=== PATIENT | male | born 1950 | race Caucasian/White ===

== ENCOUNTER 2016-11-30 07:22 | Emergency (ER) | payer MEDICARE ==
[2016-11-30 07:34] VITALS: BP 168/104
[2016-11-30] MEDS ORDERED: Fluorescein Sodium TOPICAL* 1 MG TEST OPHTHALMIC ONE (07:58)
--- NOTE | 2016-11-30 08:05 | UC ---
Eye Complaint HPI - HPI Summary HPI Summary: 65 yo male with right eye redness/itching and mild lid discomfort x 2 days wakes up with lids matted shut now left eye is beginning to bother him no photophobia - History of Current Complaint Chief Complaint: UCEye Stated Complaint: EYE ISSUE Time Seen by Provider: 11/30/16 07:53 Hx Obtained From: Patient Onset/Duration: Gradual Onset Timing: Constant Severity Initially: Mild Severity Currently: Mild Pain Intensity: 2 Pain Scale Used: 0-10 Numeric Location of Injury: Conjunctiva Character: Dull Aggravating Factor(s): Nothing Associated Signs And Symptoms: Positive: Drainage (Purulent) - Risk Factors Penetrating Injury Risk Factor: Negative Globe Rupture Risk Factors: Negative Acute Glaucoma Risk Factors: Negative Optic Artery Occlusion Risk Factors: Negative - Allergies/Home Medications Allergies/Adverse Reactions: Allergies Allergy/AdvReac Type Severity Reaction Status Date / Time Morphine AdvReac Severe Vomiting Verified 11/30/16 07:34 Home Medications: Home Medications Ibuprofen [Ibuprofen 200 MG] 200 mg PO PRN 11/30/16 [History] PMH/Surg Hx/FS Hx/Imm Hx Previously Healthy: Yes Cardiovascular History Of: Reports: Hypertension - noted at recent ortho visit Denies: Pacemaker/ICD - Surgical History Surgical History: Yes Surgery Procedure, Year, and Place: LEFT Hip revision. 1990. T+A 1956. right thumb 2013 - Family History Known Family History: Positive: Hypertension - Social History Alcohol Use: Daily Alcohol Amount: 10 OZ/WEEK Substance Use Type: None Smoking Status (MU): Never Smoked Tobacco Review of Systems Constitutional: Negative Skin: Negative Eyes: Drainage, Eye Redness ENT: Negative Respiratory: Negative Cardiovascular: Negative Gastrointestinal: Negative Genitourinary: Negative Motor: Negative Neurovascular: Negative Musculoskeletal: Negative Neurological: Negative Psychological: Negative All Other Systems Reviewed And Are Negative: Yes Physical Exam Triage Information Reviewed: Yes Appearance: Well-Appearing, No Pain Distress, Well-Nourished Vital Signs: Initial Vital Signs Temp 97.5 F 11/30/16 07:27 Pulse 98 11/30/16 07:27 Resp 16 11/30/16 07:27 BP 168/104 11/30/16 07:27 Pulse Ox 99 11/30/16 07:27 Eyes: Positive: Conjunctiva Inflamed - R>L, Discharge - R, Other: - no sty/no fb noted/flourescein (-) ENT: Negative: Hearing grossly normal - bilateral VILLA, Nasal congestion, Nasal drainage, Trismus, Muffled/hoarse voice Neck: Positive: Supple, Nontender Respiratory: Positive: Lungs clear, Normal breath sounds, No respiratory distress Cardiovascular: Positive: RRR, No Murmur Musculoskeletal: Positive: ROM Intact, No Edema Neurological: Positive: Alert Psychological Exam: Normal Skin Exam: Normal Eye Complaint Course/Dx - Differential Dx/Diagnosis Provider Diagnoses: conjunctivitis. elevate BP Discharge - Discharge Plan Condition: Stable Disposition: HOME Prescriptions: Polymyx/Trimethoprim OPTH* [Polytrim OPHTH*] 1 - 2 drop BOTH EYES QID #1 btl Patient Education Materials: Conjunctivitis (ED) Referrals: Pavel Leroy MD [Primary Care Provider] - As Soon As Possible (your BP here was 168/104) Additional Instructions: I suggest you also use ZADITOR eye drops (over the counter) as discussed see your MD about your BP See Dr. Maldonado in a couple of days if the eyes are not improved
== END 2016-11-30 08:20 | disposition home or self-care (01) ==
LOC: UCEAST 07:22
DX: H10.9 Unspecified conjunctivitis (principal); R03.0 Elevated blood-pressure reading, without diagnosis of hypertension
CPT/HCPCS: 99212; A9270-GY; G0463

== ENCOUNTER 2017-01-26 20:16 | Emergency (ER) | payer MEDICARE ==
[2017-01-26 20:29] VITALS: BP 142/89
[2017-01-26] MEDS ORDERED: HYDROcodone/ACETAMIN 5-325 MG* 1 TAB PO ONE ×2 (21:27)
--- NOTE | 2017-01-26 22:05 | UC ---
Jacquie Samano Edward, scribed for Rian Wesley MD on 01/26/17 at 2115 . Neck Pain HPI - HPI Summary HPI Summary: 66 y/o male presents to [facility] c/o neck pain starting three days ago. Patient felt stiffness in neck and arm three nights ago. Two nights ago, the patient's neck pain became severe. It is rated at a 10/10 @ triage. The pain is located in the L side of the neck and radiates to his L shoulder and down his back. The pain is aggravated when he moves his arms. The neck pain is not alleviated by Ibuprofen or ice treatment. Patient has difficulty turning over or sitting up when lying down. Patient states he reached over to pick something up four days ago - he believes his neck pain may be attributed to this motion. Associated sx : decreased ROM secondary to pain in neck. Denies any other specific injury. PMHx HTN, chronic pain, arthritis. SHx L hip replacement, impending R hip replacement. - History of Current Complaint Chief Complaint: UCBackPain Stated Complaint: NECK PAIN Time Seen by Provider: 01/26/17 21:06 Hx Obtained From: Patient Mechanism Of Injury: No Known Trauma Onset/Duration: Gradual Onset, Lasting Days, Still Present Location: Discrete At: - L side of neck, Radiates To: - L shoulder and back Alleviating Factors: Nothing - Not alleviated by ice or ibuprofen Associated Signs & Symptoms: Positive: Nuchal Rigity - Allergies/Home Medications Allergies/Adverse Reactions: Allergies Allergy/AdvReac Type Severity Reaction Status Date / Time Morphine AdvReac Severe Vomiting Verified 01/26/17 20:29 Home Medications: Home Medications traMADol TAB* [Ultram*] 01/26/17 [History] PMH/Surg Hx/FS Hx/Imm Hx - Additional Past Medical History Additional PMH: Positive: arthritis Previously Healthy: No Cardiovascular History: Hypertension - Surgical History Surgical History: Yes Surgery Procedure, Year, and Place: LEFT Hip revision. 1990. T+A 1956. right thumb 2013 - Family History Known Family History: Positive: Hypertension - Social History Alcohol Use: Occasionally Alcohol Amount: 10 OZ/WEEK Substance Use Type: None Smoking Status (MU): Never Smoked Tobacco Review Of Systems Constitutional: Positive: Negative Skin: Positive: Negative Eyes: Positive: Negative ENT: Positive: Negative Respiratory: Positive: Negative Cardiovascular: Positive: Negative Gastrointestinal: Positive: Negative Genitourinary: Positive: Negative Musculoskeletal: Positive: Arthralgia - Chronic pain, Decreased ROM - Neck secondary to pain, Myalgia - L neck pain Neurological: Positive: Negative Psychological: Positive: Negative All Other Systems Reviewed And Are Negative: Yes Physical Exam Triage Information Reviewed: Yes Appearance: Well-Appearing, Pain Distress - Mild to moderate pain distress with movement of neck Vital Signs: Initial Vital Signs Temp 97.3 F 01/26/17 20:23 Pulse 72 01/26/17 20:23 Resp 12 01/26/17 20:23 BP 142/89 01/26/17 20:23 Pulse Ox 99 01/26/17 20:23 Vital Signs Reviewed: Yes Eyes: Positive: Conjunctiva Clear ENT: Positive: Normal ENT inspection Neck: Positive: Supple, Nontender Respiratory: Positive: Lungs clear, Normal breath sounds, No respiratory distress Cardiovascular: Positive: RRR, Pulses Normal Abdomen Description: Positive: Nontender, Soft Bowel Sounds: Positive: Present Musculoskeletal: Positive: Strength Intact - No strength or sensation deficit, ROM Intact - Good ROM in arms, Other: - There is pain anytime he tries to look left or right. No midline tenderness @ C-spine, tender laterally. Neurological Exam: Normal Neurological: Positive: Alert Psychological Exam: Normal Psychological: Positive: Age Appropriate Behavior Skin Exam: Normal Neck Pain Course/Dx - Course Course Of Treatment: MEDICATIONS REVIEWED ON VISIT. NON TRAUMATIC INJURY. NO NEUROLOGIC DEFICIT. CT NOT AVAILABLE IN CLINIC TONIGHT SO, NO IMAGING DONE. PATIENT WILL F/U WITH PMD TO DETERMINE IMAGING/FURTHER CARE. RETURN IF WORSE. - Differential Dx/Diagnosis Provider Diagnoses: NECK PAIN WITH RADICULOPATHY. Discharge - Discharge Plan Condition: Stable Disposition: HOME Prescriptions: Cyclobenzaprine TAB* [Flexeril 10 MG TAB*] 10 mg PO TID PRN #15 tab PRN Reason: Pain HYDROcodone/ACETAMIN 5-325 MG* [[place] 5-325 TAB*] 1 tab PO Q4H PRN #20 tab MDD 6 PRN Reason: Pain Patient Education Materials: Cervical Strain (ED), Cervical Radiculopathy (ED) , Acute Neck Pain (ED) Referrals: Pavel Leroy MD [Primary Care Provider] - Additional Instructions: FOLLOW UP WITH YOUR DOCTOR. CONTINUE THE IBUPROFEN DIRECTED. STOP THE TRAMADOL AND TAKE THE NORCO (HYDROCODONE/ACETAMINOPHEN) DIRECTED NEEDED. TAKE THE MUSCLE RELAXER FLEXERIL DIRECTED NEEDED. CALL YOUR DOCTOR TOMORROW TO DETERMINE IF HE WISHES ANY IMAGING (X-RAY/CT/MRI). WE DID NOT PERFORM A CT TODAY BECAUSE OUR CT WAS NOT AVAILABLE. GET SEEN AGAIN FOR ANY WORSENING OF YOUR CONDITION; WEAKNESS, NUMBNESS, PAIN OR QUESTIONS OR CONCERNS. The documentation as recorded by the Jacquie moore Edward accurately reflects the service I personally performed and the decisions made by me, Rian Wesley MD.
== END 2017-01-26 21:54 | disposition home or self-care (01) ==
LOC: UCEAST 20:16
DX: M54.12 Radiculopathy, cervical region (principal)
CPT/HCPCS: 99212; G0463

== ENCOUNTER 2017-11-14 15:49 | Emergency (ER) | payer MEDICARE ==
[2017-11-14] MEDS ORDERED: methylPREDNISolone 125 MG* 2 ML VIAL IV ONE (16:13)
[2017-11-14] MEDS ORDERED: Famotidine IV* 10 MG/ML 2 ML (20 mg) IV SLOW PU ONE (16:13)
[2017-11-14] MEDS ORDERED: diPHENhydraMINE IV* 50 MG/ML 1 ml VIAL (BENADRYL) IV ONE (16:13)
--- NOTE | 2017-11-14 18:20 | ED ---
Desean Samano Stephanie, scribed for Kulwinder Cummings MD on 11/14/17 at 1623 . Allergic Reaction/Systemic - HPI Summary HPI Summary: The pt is a 66 y/o M presenting to the ED with c/o throat and tongue soreness s/ p eating at 13:45 today. Symptoms include rash, dizziness, lightheadedness and swollen lips. Pt states he ate salad of green beans, corn, and jicama. The pt reports onset of his symptoms began 20 minutes after his meal. The pt was given epi at [facility] today. - History of Current Complaint Chief Complaint: EDAllergicReaction Time Seen by Provider: 11/14/17 15:56 Hx Obtained From: Patient Onset/Duration: Sudden Onset, Started hours ago - 3, Still Present Timing: Constant Severity Currently: Mild Pain Intensity: 0 Pain Scale Used: 0-10 Numeric Location: Diffuse Aggravating Factor(s): Nothing Alleviating Factor(s): Nothing Associated Signs And Symptoms: Positive: Lightheadedness, Rash - Allergies/Home Medications Allergies/Adverse Reactions: Allergies Allergy/AdvReac Type Severity Reaction Status Date / Time morphine Allergy Vomiting Verified 11/14/17 16:34 Home Medications: Home Medications Omeprazole CAP* [Prilosec CAP* 20 MG] 40 mg PO DAILY 11/14/17 [History Confirmed 11/14/17] Simvastatin TAB(NF) [Zocor(NF)] 20 mg PO DAILY 11/14/17 [History Confirmed 11/14] PMH/Surg Hx/FS Hx/Imm Hx Cardiovascular History: Reports: Hx Hypertension - noted at recent ortho visit Denies: Hx Pacemaker/ICD Musculoskeletal History: Reports: Hx Arthritis - LEFT THUMB Denies: Hx Rheumatoid Arthritis, Hx Osteoporosis Sensory History: Reports: Hx Contacts or Glasses - GLASSES, Hx Hearing Aid - BILAT Opthamlomology History: Reports: Hx Contacts or Glasses - GLASSES Neurological History: Reports: Other Neuro Impairments/Disorders - 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 1990. T+A 1956. right thumb 2013 Hx Anesthesia Reactions: No Infectious Disease History: No Infectious Disease History: Denies: Traveled Outside the [place] in Last 30 Days - Family History Known Family History: Positive: Hypertension - Social History Occupation: Employed Full-time Lives: With Family Alcohol Use: Occasionally Alcohol Amount: 10 OZ/WEEK Substance Use Type: Reports: None Hx Tobacco Use: No Smoking Status (MU): Never Smoked Tobacco Have You Smoked in the Last Year: No Review of Systems Negative: Fever Positive: Sore Throat, Other - tongue soreness Positive: Rash, Other - swollen lips Neurological: Other - dizziness, lightheadedness All Other Systems Reviewed And Are Negative: Yes Physical Exam - Summary Physical Exam Summary: Appearance: Well appearing, no pain distress Skin: warm, dry, blotchy red rash over chest and arms Head/face: normal Eyes: EOMI, SAGE ENT: uvula is swollen, R lower lip swelling, no tongue swelling Neck: supple, non-tender Respiratory: CTA, breath sounds present Cardiovascular: RRR, pulses symmetrical Abdomen: non-tender, soft Bowel Sounds: present Musculoskeletal: normal, strength/ROM intact Neuro: normal, sensory motor intact, A&Ox3 Triage Information Reviewed: Yes Vital Signs On Initial Exam: Initial Vitals Temp Pulse Resp BP Pulse Ox 98.7 F 81 18 168/93 99 11/14/17 16:03 11/14/17 16:03 11/14/17 16:03 11/14/17 16:03 11/14/17 16:03 Vital Signs Reviewed: Yes Diagnostics - Vital Signs Vital Signs Temp Pulse Resp BP Pulse Ox 11/14/17 16:03 98.7 F 81 18 168/93 99 - Laboratory Lab Statement: Any lab studies that have been ordered have been reviewed, and results considered in the medical decision making process. Re-Evaluation - Re-Evaluation First Eval Change: Improved - Significantly improved with steroid, Pepcid and Benadryl. Allergic Reaction Course/Dx - Course Course Of Treatment: Patient with significant apparent food related allergy. Patient's or obtain ingredient list from [employer]. Had received prehospital epinephrine and Benadryl. He further improved with H1, H2 marina, steroid here. A second dose of epinephrine was not needed. He had residual mild edema of his uvula without any systemic signs or rash. His blood pressures remained normal. He was given prescriptions for EpiPen as well as steroid, H2 marina. He will follow up with primary care physician for allergy referral. - Diagnoses Provider Diagnoses: Acute anaphylaxis, Food allergy Discharge - Sign-Out/Discharge Documenting (check all that apply): Discharge/Admit/Transfer - Discharge Plan Condition: Improved Disposition: HOME Prescriptions: EPINEPHrine [Epipen 2-Lobito] 0.3 mg IM ONCE PRN #2 box PRN Reason: severe allergy symptoms Famotidine TAB* [Pepcid 20 MG TAB*] 20 mg PO BID PRN #10 tab PRN Reason: Allergy Symptoms predniSONE TAB* [Deltasone TAB*] 50 mg PO DAILY #3 tab Patient Education Materials: Anaphylaxis (ED) Referrals: Pavel Leroy MD [Primary Care Provider] - Additional Instructions: Call your doctor in the morning for recheck. Have him refer you for allergy testing. Always carry an EpiPen with you. Uses for severe symptoms. Return with difficulty breathing, lightheadedness, worse or other concerns as discussed. - Billing Disposition and Condition Condition: IMPROVED Disposition: HOME The documentation as recorded by the Desean moore Stephanie accurately reflects the service I personally performed and the decisions made by , Kulwinder Cummings MD.
[2017-11-14 19:14] VITALS: BP 162/95
== END 2017-11-14 18:35 | disposition home or self-care (01) ==
LOC: ED 15:49
DX: T78.09XA Anaphylactic reaction due to other food products, initial encounter (principal); R21 Rash and other nonspecific skin eruption; R42 Dizziness and giddiness; J02.9 Acute pharyngitis, unspecified
CPT/HCPCS: 96374; 99283; J1200; J2930

== ENCOUNTER 2019-03-20 15:45 | Emergency (ER) | payer MEDICARE ==
[2019-03-20 16:08] VITALS: BP 179/99
--- NOTE | 2019-03-20 16:31 | UC ---
Lower Extremity/Ankle HPI - HPI Summary HPI Summary: 68-year-old male comes in with a chief complaint of right leg pain. Pain started on March 08 when he jumped off his tractor and sudden onset of pain in the right anterior thigh. He saw his surgeon in [place] who did x-rays of the leg at the hip and the back and the patient reports no fractures were seen but he did find degenerative changes in the spine and the surgeon gave him the diagnosis of lumbar radiculopathy. The pain has been intermittent since March 08 this most recent exacerbation started yesterday morning when he got up from sleep in the morning. If the patient states bent forward he has no pain but as soon as he stands up straight he gets pain shooting in the right thigh. Patient has been taking acetaminophen and naproxen with minimal relief. No weakness or numbness no difficulty controlling urine or bowels. He has a appointment with physical therapy on Monday, March 25, 2019 and also on the same date an appointment with his primary care physician. Patient does have a history of surgery in the right hip. - History of Current Complaint Chief Complaint: UCBackPain Stated Complaint: BACK PAIN Time Seen by Provider: 03/20/19 15:54 Pain Intensity: 1 - Allergies/Home Medications Allergies/Adverse Reactions: Allergies Allergy/AdvReac Type Severity Reaction Status Date / Time oyster extract Allergy Severe Vomiting Verified 03/20/19 16:11 morphine Allergy Vomiting Verified 03/20/19 16:08 JICAMA Allergy Severe ANAPHYALAXI Uncoded 03/20/19 16:11 S RUHBARD Allergy Severe AIRAWAY Uncoded 03/20/19 16:11 AND ESOPHAGEAL ITCHING PMH/Surg Hx/FS Hx/Imm Hx Previously Healthy: Yes Endocrine History: Dyslipidemia GI/ History: Gastroesophageal Reflux - Surgical History Surgical History: Yes Surgery Procedure, Year, and Place: LEFT Hip revision. 1990. T+A 1956. right thumb 2013 - Family History Known Family History: Positive: Hypertension - Social History Alcohol Use: Occasionally Alcohol Amount: 10 OZ/WEEK Substance Use Type: None Smoking Status (MU): Never Smoked Tobacco Have You Smoked in the Last Year: No Review of Systems All Other Systems Reviewed And Are Negative: Yes Constitutional: Positive: Negative Skin: Positive: Negative Eyes: Positive: Negative ENT: Positive: Negative Respiratory: Positive: Negative Cardiovascular: Positive: Negative Gastrointestinal: Positive: Negative Genitourinary: Positive: Negative Motor: Positive: Other - SEE HPI Neurovascular: Positive: Negative Musculoskeletal: Positive: Other: - SEE HPI Neurological: Positive: Negative Psychological: Positive: Negative Is Patient Immunocompromised?: No Physical Exam Triage Information Reviewed: Yes Appearance: Well-Appearing, Well-Nourished, Pain Distress - MILD WITH ROM Vital Signs: Initial Vital Signs Temp 98.2 F 03/20/19 15:55 Pulse 67 03/20/19 15:55 Resp 17 03/20/19 15:55 BP 179/99 03/20/19 15:55 Pulse Ox 96 03/20/19 15:55 Vital Signs Reviewed: Yes Eye Exam: Normal Eyes: Positive: Conjunctiva Clear Neck: Positive: Supple Respiratory: Positive: No respiratory distress Musculoskeletal: Positive: Strength Intact, Other: - Low back is nontender to palpation. Patient stays bent forward at the hips. When he attempts to stand up he gets pain shooting down his right thigh. Scuffle range of motion of the knee and the ankle foot with normal strength. He reports a chronic decreased sensation in the right 5 from 2017 hip surgery. Reports no new numbness today. Neurological: Positive: Alert Psychological: Positive: Age Appropriate Behavior Skin Exam: Normal Lower Extremity Course/Dx - Course Course Of Treatment: Patient's RAD had x-rays at his orthopedist on March 13, 2019. We discussed whether or not to get any x-rays here in the patient declined saying that he can get the x-rays reports from his surgeon in [place]. Patient's taken ibuprofen and acetaminophen with minimal relief. Prescribing Flexeril. Patient does have a follow-up with his physical therapist and primary care physician. He has seen sports medicine in the past and I'm referring him to sports medicine. At this time the patient has no focal neurologic deficits. Patient's to get reevaluated sooner if he worsens or any questions or concerns. - Differential Dx/Diagnosis Provider Diagnosis: Leg pain, right Discharge ED - Sign-Out/Discharge Documenting (check all that apply): Patient Departure All imaging exams completed and their final reports reviewed: No Studies - Discharge Plan Condition: Stable Disposition: HOME Prescriptions: Cyclobenzaprine TAB* [Flexeril 10 MG TAB*] 10 mg PO TID PRN #15 tab MDD 3 PRN Reason: Pain - Moderate Patient Education Materials: Lumbar Radiculopathy (ED), Leg Pain (ED) Referrals: Pavel Leroy MD [Primary Care Provider] - [facility] [Provider Group] Additional Instructions: FOLLOW UP WITH SPORTS MEDICINE. GET RECHECKED SOONER IF YOUR CONDITION WORSENS; WEAKNESS, NUMBNESS, DIFFICULTY CONTROLLING BOWEL OR BLADDER OR ANY QUESTIONS OR CONCERNS. - Billing Disposition and Condition Condition: STABLE Disposition: Home
== END 2019-03-20 16:43 | disposition home or self-care (01) ==
LOC: UCEAST 15:45
DX: M79.661 Pain in right lower leg (principal); E78.5 Hyperlipidemia, unspecified; K21.9 Gastro-esophageal reflux disease without esophagitis; Z88.5 Allergy status to narcotic agent
CPT/HCPCS: 99212; G0463

== ENCOUNTER 2022-03-21 09:44 | Inpatient (IN) ==
[2022-03-21 10:09] LABS: ABS Basophils 0.1 10^3/ul (0-0.2); ABS Lymphocytes 1.2 10^3/ul (1.0-4.8); ABS Monocytes 1.3 10^3/ul (0-0.8); ABS Neutrophils 8.7 10^3/ul (1.5-7.7); Eosinophil % 0.2 %; Hematocrit 51 % (42-52); Hemoglobin 16.8 g/dL (14.0-18.0); Mean Corpuscular HGB Conc 33 g/dL (31-36); Mean Corpuscular Hemoglobin 31 pg (27-31); Mean Corpuscular Volume 94 fL (80-94); Platelet Count 140 10^3/uL (150-450); Red Blood Count 5.36 10^6 /uL (4.18-5.48); Red Cell Distribution Width 14 % (10-15); White Blood Count 11.3 10^3/uL (3.5-10.8)
[2022-03-21 10:15] LABS: INR 1.01 (0.89-1.11)
[2022-03-21 10:44] LABS: Activated Partial Thrombo Time 29.3 seconds (26.0-38.0)
[2022-03-21 10:45] LABS: Albumin 4.4 g/dL (3.2-5.2); Albumin/Globulin Ratio 1.8 (1-3); Calcium 10.1 mg/dL (8.6-10.3); Globulin 2.5 g/dL (2-4); Magnesium 1.8 mg/dL (1.9-2.7); Potassium 4.9 mmol/L (3.5-5.0); Total Protein 6.9 g/dL (6.4-8.9); eGFR CKD-EPI 76.7 (>60)
[2022-03-21] MEDS ORDERED: Iohexol 350 (CONTRAST) 500 ML MDV IV ONE ×2 (10:54→11:02)
[2022-03-21 11:08] LABS: TSH Ultra Thyroid Stim Horm 2.99 mcIU/mL (0.34-5.60)
[2022-03-21 11:34] LABS: High Sensitivity Troponin 1 Hr 9875 pg/mL (<20)
[2022-03-21] MEDS ORDERED: Enoxaparin 80 MG/0.8 ML SYR SUBCUT ONE (11:53)
[2022-03-21] MEDS ORDERED: Magnesium Sulfate IV 3 GM in NS 0.9% 100 ml BAG 100 ML IVPB ONE (14:58)
[2022-03-21 15:13] LABS: HDL Cholesterol 66.4 mg/dL
[2022-03-21 16:29] LABS: C Reactive Protein 99.06 mg/L (<8.01)
[2022-03-21] MEDS ORDERED: methylPREDNISolone SOD SUCC 125 mg 2 ML VIAL IV ONE (18:00)
[2022-03-21] MEDS ORDERED: methylPREDNISolone SOD SUCC 500 MG in NS 100 ML BAG IVPB ONE (18:30)
[2022-03-22] MEDS: Enoxaparin 100 MG/ML SYR SUBCUT SCH ×3 (00:38→22:24)
[2022-03-22 06:08] LABS: ABS Lymphocytes 0.8 10^3/ul (1.0-4.8); ABS Monocytes 0.2 10^3/ul (0-0.8); ABS Neutrophils 8.3 10^3/ul (1.5-7.7); Hematocrit 46 % (42-52); Hemoglobin 15.5 g/dL (14.0-18.0); Lymphocyte % 8.8 %; Mean Corpuscular HGB Conc 34 g/dL (31-36); Mean Corpuscular Hemoglobin 32 pg (27-31); Mean Corpuscular Volume 94 fL (80-94); Mean Platelet Volume 9.2 fL (7.4-10.4); Nucleated Red Blood Cells % 0.1; Platelet Count 127 10^3/uL (150-450); Red Cell Distribution Width 14 % (10-15); White Blood Count 9.4 10^3/uL (3.5-10.8)
[2022-03-22 06:35] LABS: Albumin 3.8 g/dL (3.2-5.2); Albumin/Globulin Ratio 1.7 (1-3); Calcium 9.3 mg/dL (8.6-10.3); Globulin 2.3 g/dL (2-4); Magnesium 2.2 mg/dL (1.9-2.7); Potassium 4.6 mmol/L (3.5-5.0); Total Bilirubin 0.8 mg/dL (0.2-1.0); Total Protein 6.1 g/dL (6.4-8.9); eGFR CKD-EPI 75.8 (>60)
[2022-03-22] MEDS ORDERED: methylPREDNISolone SOD SUCC 125 mg 2 ML VIAL IV SCH (09:00)
[2022-03-22] MEDS ORDERED: methylPREDNISolone SOD SUCC 500 MG in NS 100 ML BAG IVPB SCH (09:00)
[2022-03-22 09:01] LABS: C Reactive Protein 159.43 mg/L (<8.01)
[2022-03-22] MEDS: Pantoprazole VIAL 40 MG VIAL IV SCH (09:33)
[2022-03-22 12:58] LABS: High Sensitivity Troponin 1 Hr 3601 pg/mL (<20)
[2022-03-22] MEDS: Aspirin EC 81 mg TAB.EC (enteric coated) PO SCH (13:29)
[2022-03-22] MEDS ORDERED: Perflutren Lipid Microsphere 3 ML VIAL ONE (13:59)
[2022-03-22 15:02] LABS: High Sensitivity Troponin 1 Hr 3622 pg/mL (<20)
[2022-03-22] MEDS ORDERED: Lactated Ringers 1000 ml BAG 1,000 ML IV SCH (19:00)
[2022-03-22 21:38] LABS: Urine Appearance Clear; Urine Bilirubin Negative (Negative); Urine Blood Negative (Negative); Urine Color Yellow; Urine Glucose Negative (Negative); Urine Ketones Negative (Negative); Urine Nitrite Negative (Negative); Urine Protein Trace (Negative); Urine Specific Gravity 1.025 (1.002-1.030); Urine Urobilinogen 0.2 (Negative) (Negative); Urine pH 5.5 (5.0-9.0)
[2022-03-22 21:48] LABS: Urine Bacteria Absent (Absent); Urine Granular Casts Present (Absent); Urine Red Blood Cell Trace(0-2/hpf) (Absent); Urine Squamous Epithelial Cell Present (Absent); Urine White Blood Cell Trace(0-5/hpf) (Absent)
[2022-03-23 06:17] LABS: Hematocrit 42 % (42-52); Hemoglobin 14.1 g/dL (14.0-18.0); Mean Corpuscular HGB Conc 34 g/dL (31-36); Mean Corpuscular Hemoglobin 32 pg (27-31); Mean Corpuscular Volume 95 fL (80-94); Mean Platelet Volume 9.3 fL (7.4-10.4); Platelet Count 121 10^3/uL (150-450); Red Blood Count 4.39 10^6 /uL (4.18-5.48); Red Cell Distribution Width 14 % (10-15); White Blood Count 17.1 10^3/uL (3.5-10.8)
[2022-03-23 06:49] LABS: C Reactive Protein 76.77 mg/L (<8.01); Calcium 8.9 mg/dL (8.6-10.3); Magnesium 2.1 mg/dL (1.9-2.7); Potassium 4.8 mmol/L (3.5-5.0); eGFR CKD-EPI 82.4 (>60)
[2022-03-23] MEDS: Pantoprazole VIAL 40 MG VIAL IV SCH (09:03)
[2022-03-23] MEDS: Aspirin EC 81 mg TAB.EC (enteric coated) PO SCH (09:04)
[2022-03-23] MEDS: Enoxaparin 100 MG/ML SYR SUBCUT SCH (11:43)
[2022-03-24 05:59] LABS: ABS Lymphocytes 2.1 10^3/ul (1.0-4.8); ABS Neutrophils 6.9 10^3/ul (1.5-7.7); Eosinophil % 0.1 %; Hematocrit 38 % (42-52); Hemoglobin 12.6 g/dL (14.0-18.0); Lymphocyte % 21.2 %; Mean Corpuscular HGB Conc 33 g/dL (31-36); Mean Corpuscular Hemoglobin 32 pg (27-31); Mean Corpuscular Volume 94 fL (80-94); Mean Platelet Volume 9.9 fL (7.4-10.4); Nucleated Red Blood Cells % 0.1; Platelet Count 110 10^3/uL (150-450); Red Cell Distribution Width 14 % (10-15)
[2022-03-24 06:15] LABS: Calcium 8.5 mg/dL (8.6-10.3); Magnesium 2.1 mg/dL (1.9-2.7); Potassium 4.5 mmol/L (3.5-5.0); eGFR CKD-EPI 90.2 (>60)
[2022-03-24 07:50] LABS: C Reactive Protein 26.02 mg/L (<8.01)
[2022-03-24] MEDS ORDERED: Heparin 2 UNITS/ML 1000 mls 2,000 ML IV ONE (08:27)
[2022-03-24] MEDS ORDERED: Midazolam 5 mg/5 ml VIAL 1 mg/ml 5 ml VIAL (5 mg) ONE (08:30)
[2022-03-24] MEDS ORDERED: fentaNYL 100 mcg/2 ml 50 MCG/ML VIAL ONE (08:30)
[2022-03-24] MEDS ORDERED: Heparin 1,000 UNIT/ML 10 ml (10,000 UNITS) CATHLAB/DIALYSIS ONE (08:30)
[2022-03-24] MEDS ORDERED: Iohexol 350 (CONTRAST) 100 ML PAK IV ONE (08:31)
[2022-03-24] MEDS ORDERED: Lidocaine 1% MPF 5 ML VIAL ONE (08:31)
[2022-03-24] MEDS ORDERED: nitroGLYCERIN DRIP 25,000 MCG/250 ML BTL ONE (08:31)
[2022-03-24] MEDS ORDERED: niCARdipine 0.1MG/ML IVPREMIX 20 MG/200 ML BAG IV ONE (08:31)
[2022-03-24] MEDS: Aspirin EC 81 mg TAB.EC (enteric coated) PO SCH (08:54)
[2022-03-24] MEDS: Pantoprazole VIAL 40 MG VIAL IV SCH (16:55)
[2022-03-24] MEDS: Enoxaparin 40 MG/0.4 ML SYR SUBCUT SCH (20:02)
[2022-03-25 05:49] LABS: Hematocrit 41 % (42-52); Hemoglobin 13.5 g/dL (14.0-18.0); Mean Corpuscular HGB Conc 33 g/dL (31-36); Mean Corpuscular Hemoglobin 31 pg (27-31); Mean Corpuscular Volume 95 fL (80-94); Platelet Count 109 10^3/uL (150-450); Red Blood Count 4.31 10^6 /uL (4.18-5.48); Red Cell Distribution Width 13 % (10-15); White Blood Count 6.5 10^3/uL (3.5-10.8)
[2022-03-25 06:27] LABS: Calcium 8.4 mg/dL (8.6-10.3); Magnesium 1.9 mg/dL (1.9-2.7); Potassium 4.4 mmol/L (3.5-5.0); eGFR CKD-EPI 91.8 (>60)
[2022-03-25] MEDS ORDERED: Magnesium Sulfate 2 gm BAG 2 GM/50 ML BAG IVPB ONE (07:39)
[2022-03-25] MEDS: Aspirin EC 81 mg TAB.EC (enteric coated) PO SCH (09:49)
[2022-03-25] MEDS: Pantoprazole VIAL 40 MG VIAL IV SCH (10:16)
[2022-03-25] MEDS: Enoxaparin 40 MG/0.4 ML SYR SUBCUT SCH (17:03)
[2022-03-26 06:48] LABS: Hematocrit 43 % (42-52); Hemoglobin 15.1 g/dL (14.0-18.0); Mean Corpuscular HGB Conc 36 g/dL (31-36); Mean Corpuscular Hemoglobin 33 pg (27-31); Mean Corpuscular Volume 94 fL (80-94); Platelet Count 121 10^3/uL (150-450); Red Blood Count 4.52 10^6 /uL (4.18-5.48); Red Cell Distribution Width 13 % (10-15); White Blood Count 6.4 10^3/uL (3.5-10.8)
[2022-03-26 07:01] LABS: Calcium 8.7 mg/dL (8.6-10.3); Magnesium 1.9 mg/dL (1.9-2.7); Potassium 4.6 mmol/L (3.5-5.0); eGFR CKD-EPI 91.1 (>60)
[2022-03-26] MEDS: Pantoprazole VIAL 40 MG VIAL IV SCH (08:26)
[2022-03-26] MEDS: Aspirin EC 81 mg TAB.EC (enteric coated) PO SCH (08:26)
[2022-03-26] MEDS ORDERED: Acetaminophen IV 1 GM/100ML 1,000 MG/100 ML BAG IV PRN (17:08)
[2022-03-26] MEDS: Enoxaparin 40 MG/0.4 ML SYR SUBCUT SCH (17:32)
[2022-03-27] MEDS: Aspirin EC 81 mg TAB.EC (enteric coated) PO SCH (09:15)
[2022-03-27] MEDS: Pantoprazole VIAL 40 MG VIAL IV SCH (09:15)
[2022-03-27] MEDS: Lidocaine PATCH 5% PATCH TRANSDERM SCH (10:06)
[2022-03-27] MEDS: Enoxaparin 40 MG/0.4 ML SYR SUBCUT SCH (17:54)
[2022-03-28 06:32] LABS: Calcium 8.6 mg/dL (8.6-10.3); Magnesium 1.7 mg/dL (1.9-2.7); Potassium 4.4 mmol/L (3.5-5.0); eGFR CKD-EPI 90.5 (>60)
[2022-03-28] MEDS ORDERED: Magnesium Sulfate IV 3 GM in NS 0.9% 100 ml BAG 100 ML IVPB ONE (07:30)
[2022-03-28] MEDS: Pantoprazole VIAL 40 MG VIAL IV SCH (08:41)
[2022-03-28] MEDS: Lidocaine PATCH 5% PATCH TRANSDERM SCH (08:41)
[2022-03-28] MEDS: Aspirin EC 81 mg TAB.EC (enteric coated) PO SCH (08:41)
[2022-03-28 16:29] VITALS: BP 131/76
[2022-03-28 17:39] LABS: Anaplasma phagocytophilum Negative (Negative); B. miyamotoi PCR, B Negative (Negative); Babesia divergens/MO-1 Negative (Negative); Babesia ducani Negative (Negative); Ehrlichia chaffeensis Negative (Negative); Ehrlichia ewingii/canis Negative (Negative); Ehrlichia muris eauclairensis Negative (Negative)
== END 2022-03-28 16:25 | DRG 280 ==
LOC: EDHOLD 09:44 → ED 09:44 → EDHOLD 19:25 → MEDTELE 20:14 → SUATTDRO 03-22 18:13
PROVIDERS: ADMIT Internal Medicine; ATTEND Internal Medicine

== ENCOUNTER 2022-03-28 13:52 | Inpatient (IN) ==
[2022-03-28] MEDS ORDERED: Magnesium Hydroxide LIQ 30 ML UDC PO PRN (18:37)
[2022-03-28] MEDS ORDERED: Senna TAB 8.6 mg TAB PO PRN (18:37)
[2022-03-28] MEDS: Enoxaparin 40 MG/0.4 ML SYR SUBCUT SCH (19:27)
[2022-03-29] MEDS: Aspirin EC 81 mg TAB.EC (enteric coated) PO SCH (08:32)
[2022-03-29] MEDS: Lidocaine PATCH 5% PATCH TRANSDERM SCH (12:12)
[2022-03-29] MEDS: Enoxaparin 40 MG/0.4 ML SYR SUBCUT SCH (19:21)
[2022-03-30 06:02] LABS: Hematocrit 40 % (42-52); Hemoglobin 13.6 g/dL (14.0-18.0); Mean Corpuscular HGB Conc 34 g/dL (31-36); Mean Corpuscular Hemoglobin 31 pg (27-31); Mean Corpuscular Volume 93 fL (80-94); Mean Platelet Volume 7.7 fL (7.4-10.4); Platelet Count 155 10^3/uL (150-450); Red Blood Count 4.32 10^6 /uL (4.18-5.48); Red Cell Distribution Width 13 % (10-15); White Blood Count 7.2 10^3/uL (3.5-10.8)
[2022-03-30 06:43] LABS: Albumin 3.4 g/dL (3.2-5.2); Albumin/Globulin Ratio 1.6 (1-3); Calcium 8.5 mg/dL (8.6-10.3); Globulin 2.1 g/dL (2-4); Potassium 4.5 mmol/L (3.5-5.0); Total Bilirubin 0.5 mg/dL (0.2-1.0); Total Protein 5.5 g/dL (6.4-8.9); eGFR CKD-EPI 84.5 (>60)
[2022-03-30 09:16] LABS: ABS Eosinophils 0.2 10^3/ul (0-0.6); ABS Lymphocytes 1.2 10^3/ul (1.0-4.8); ABS Monocytes 1.1 10^3/ul (0-0.8); ABS Neutrophils 4.6 10^3/ul (1.5-7.7); Eosinophil % 2.4 %; Lymphocyte % 17.2 %; Nucleated Red Blood Cells % 0.1
[2022-03-30] MEDS: Aspirin EC 81 mg TAB.EC (enteric coated) PO SCH (09:26)
[2022-03-30] MEDS: Lidocaine PATCH 5% PATCH TRANSDERM SCH (12:21)
[2022-03-30] MEDS: Enoxaparin 40 MG/0.4 ML SYR SUBCUT SCH (19:07)
[2022-03-31] MEDS: Lidocaine PATCH 5% PATCH TRANSDERM SCH (09:19)
[2022-03-31] MEDS: Aspirin EC 81 mg TAB.EC (enteric coated) PO SCH (09:22)
[2022-03-31] MEDS ORDERED: Iohexol 350 (CONTRAST) 500 ML MDV IV ONE (17:20)
[2022-03-31] MEDS: Enoxaparin 40 MG/0.4 ML SYR SUBCUT SCH (21:40)
[2022-04-01] MEDS: Aspirin EC 81 mg TAB.EC (enteric coated) PO SCH (10:52)
[2022-04-01] MEDS: Lidocaine PATCH 5% PATCH TRANSDERM SCH (10:53)
[2022-04-01] MEDS: Isosorbide Mononit ER 30mg TAB PO SCH (10:53)
[2022-04-01] MEDS: Enoxaparin 40 MG/0.4 ML SYR SUBCUT SCH (19:26)
[2022-04-02] MEDS: Isosorbide Mononit ER 30mg TAB PO SCH (10:25)
[2022-04-02] MEDS: Aspirin EC 81 mg TAB.EC (enteric coated) PO SCH (10:25)
[2022-04-02] MEDS: Lidocaine PATCH 5% PATCH TRANSDERM SCH (10:33)
[2022-04-02] MEDS ORDERED: Polyethylene Glycol 3350 17 GM PACKET PO PRN (10:43)
[2022-04-02] MEDS: Enoxaparin 40 MG/0.4 ML SYR SUBCUT SCH (19:56)
[2022-04-03] MEDS: Aspirin EC 81 mg TAB.EC (enteric coated) PO SCH (08:55)
[2022-04-03] MEDS: Isosorbide Mononit ER 30mg TAB PO SCH (08:56)
[2022-04-03] MEDS: Lidocaine PATCH 5% PATCH TRANSDERM SCH (08:57)
[2022-04-03] MEDS: Enoxaparin 40 MG/0.4 ML SYR SUBCUT SCH (19:06)
[2022-04-04] MEDS: Lidocaine PATCH 5% PATCH TRANSDERM SCH (09:05)
[2022-04-04] MEDS: Isosorbide Mononit ER 30mg TAB PO SCH (09:08)
[2022-04-04] MEDS: Aspirin EC 81 mg TAB.EC (enteric coated) PO SCH (09:08)
[2022-04-04] MEDS: Enoxaparin 40 MG/0.4 ML SYR SUBCUT SCH (19:21)
[2022-04-05] MEDS: Aspirin EC 81 mg TAB.EC (enteric coated) PO SCH (08:46)
[2022-04-05] MEDS: Isosorbide Mononit ER 30mg TAB PO SCH (08:47)
[2022-04-05] MEDS: Lidocaine PATCH 5% PATCH TRANSDERM SCH (12:14)
[2022-04-05] MEDS: Enoxaparin 40 MG/0.4 ML SYR SUBCUT SCH (19:24)
[2022-04-06 05:28] VITALS: BP 118/70
[2022-04-06 06:51] LABS: ABS Eosinophils 0.3 10^3/ul (0-0.6); ABS Lymphocytes 0.9 10^3/ul (1.0-4.8); ABS Monocytes 0.5 10^3/ul (0-0.8); ABS Neutrophils 2.7 10^3/ul (1.5-7.7); Eosinophil % 6.2 %; Hematocrit 36 % (42-52); Hemoglobin 12.5 g/dL (14.0-18.0); Lymphocyte % 20.2 %; Mean Corpuscular HGB Conc 35 g/dL (31-36); Mean Corpuscular Hemoglobin 32 pg (27-31); Mean Corpuscular Volume 92 fL (80-94); Mean Platelet Volume 7.4 fL (7.4-10.4); Nucleated Red Blood Cells % 0.1; Platelet Count 174 10^3/uL (150-450); Red Blood Count 3.91 10^6 /uL (4.18-5.48); Red Cell Distribution Width 13 % (10-15); White Blood Count 4.4 10^3/uL (3.5-10.8)
[2022-04-06 06:52] LABS: Albumin 3.3 g/dL (3.2-5.2); Albumin/Globulin Ratio 1.6 (1-3); Calcium 8.7 mg/dL (8.6-10.3); Globulin 2.1 g/dL (2-4); Potassium 4.3 mmol/L (3.5-5.0); Total Bilirubin 0.3 mg/dL (0.2-1.0); Total Protein 5.4 g/dL (6.4-8.9); eGFR CKD-EPI 79.5 (>60)
[2022-04-06] MEDS: Aspirin EC 81 mg TAB.EC (enteric coated) PO SCH (09:34)
[2022-04-06] MEDS: Lidocaine PATCH 5% PATCH TRANSDERM SCH (09:36)
== END 2022-04-06 14:45 | disposition home health service (06) | DRG 64 ==
LOC: PMRU 17:24
PROVIDERS: ADMIT Physical Medicine & Rehabilitation; ATTEND Physical Medicine & Rehabilitation